=== PATIENT | female | born 1980 | race Caucasian/White ===

== ENCOUNTER → 2016-04-20 | Outpatient (CLI) | payer OTHER ==
[2015-06-08 03:34] VITALS: BP 129/84
[~2016-04-20] MED LIST: DEXT5TAB27 PO; DIPH25CA58 PO; LEVO75TA5 PO; MELA3TAB PO
[2016-04-20 08:08] LABS: FREE T4 0.96 ng/dL (0.76-1.46)
== END | disposition home or self-care (01) ==
LOC: LAB 07:22
PROVIDERS: ATTEND Obstetrics & Gynecology
DX: E03.8 Other specified hypothyroidism (principal)
CPT/HCPCS: 36415; 84439; 84443